=== PATIENT | female | born 1935 | race Caucasian/White ===

== ENCOUNTER 2016-05-30 21:07 | Inpatient (IN) | payer OTHER ==
[~2016-05-30] VITALS: Ht 162.6 cm; Wt 68.9 kg
[~2016-05-30 21:07] MED LIST: ADULT LOW DOSE81 M1 PO; ALBUTEROL2.5 MG/3 M IH; ASPIRIN E.C.81 M1 PO; ATROVENT 00.5 MG/2.5 IH; Ascorbic Acid,Ester- PO; BACTRIM,SEPT1 TABLE1 PO; BONIVA150 MG PO; CARDIZEM CD180 MG PO; CARTIA XT180 MG PO; DUONEB 2.5-0.5 M3 ML IH; EYE SUPPORT PO; FISH OIL CONC1 EACH PO; FUROSEMIDE40 MG PO; GLUCOPHAGE500 MG PO; GLUCOPHAGE850 MG PO; GLUCOTROL XL2.5 MG PO; Glucotrol PO; HYDROCODON-ACE1 EAC7 PO; IPRATROPIUM BROMIDE; JANUMET XR 50-1 EAC1 PO; Januvia PO; KEFLEX500 MG PO; KOMBIGLYZE XR1 EAC2 PO; LASIX10 MG PO; LASIX40 MG PO; LEVOFLOXACIN500 MG PO; LIDODERM 5% P1 PATCH TD; LISINOPRIL2.5 MG PO; Lasix PO; Levaquin PO; METFORMIN HCL850 MG PO; MICRO-K8 ME2 PO; POTASSIUM CHLOR8 ME3 PO; PRAVASTATIN SOD10 MG PO; PREDNISONE PO; PRESERVISION T1 EACH PO; PRINIVIL10 MG PO; SILVADENE20 GM TP; SINGULAIR10 MG PO; SPIRIVA1 INHALATI IH; SYMBICORT60 INHALAT IH; Symbicort 160-4.5 mc IH; TYLENOL EXTRA500 MG PO; VITAMIN D1000 INTUN PO; VITAMIN D31000 UNIT PO; VITAMIN D400 UNIT PO; XARELTO15 MG PO; XARELTO20 MG PO; ZESTRIL,PRINIVI10 M1 PO; ZOLOFT25 MG PO; ZOLOFT50 MG PO; [UNRECOGNIZED DRUG - OTHER] PO; [UNRECOGNIZED DRUG - OTHER] TP; [UNRECOGNIZED DRUG - OTHER] TP; predniSONE PO
[2016-05-30 21:23] LABS: HEMATOCRIT 35.4 % (36.0-46.0); MCH 27.2 PG (29.0-34.0); MCHC 31.4 G/DL (30.0-36.0); MCV 86.8 FL (83-99); MEAN PLAT.VOLUME 10.1 uM^3 (9.5-12.4); PLATELET COUNT 207 K/uL (156-360); RBC DIS.WIDTH-CV 15.4 % (11.8-14.6); RBC DIS.WIDTH-SD 49.5 % (39-53); RED BLOOD COUNT 4.08 M/uL (3.80-5.20)
[2016-05-30 21:45] LABS: PROTHROMBIN TIME 10.5 (9.2-11.2); PTT 30.8 (25-32)
[2016-05-30 21:53] LABS: CHLORIDE 99 mEq/L (99-109); POTASSIUM 3.9 mEq/L (3.7-5.4); SODIUM 135 mEq/L (136-147)
[2016-05-30 21:55] LABS: GLUCOSE 121 mg/dL (70-99)
[2016-05-30 21:57] LABS: ANION GAP 10 MEQ/L (2-14)
[2016-05-30 21:59] LABS: GFR ESTIMATE (CALCULATED) 56 mL/min/
[2016-05-30 22:00] LABS: UREA NITROGEN (BUN) 19 mg/dL (9-23)
[2016-05-30 22:03] LABS: TROP-I INTERPRETATION NEGATIVE; TROPONIN-I < 0.01 ng/mL (0.0-0.30)
[2016-05-30] MEDS ORDERED: K-TAB ER8 MEQ PO (23:26)
[2016-05-30] MEDS ORDERED: TAMIFLU75 MG PO (23:26)
[2016-05-31] VITALS (7 sets, daily range): BP systolic 125–152; BP diastolic 60–82
[2016-05-31 01:43] LABS: ADD MIUA? YES; BILIRUBIN NEGATIVE; BLOOD LARGE; COLOR STRAW ((YELLOW)); GLUCOSE (STRIP) NEGATIVE; KETONES 5; LEUKOCYTES NEGATIVE; NITRITE NEGATIVE; PROTEIN (STRIP) NEGATIVE; SPECIFIC GRAVITY 1.004 (1.000-1.030); UROBILINOGEN 0.2 MG/DL (0.2-1.0)
[2016-05-31 02:03] LABS: BACTERIA 1+ /HPF; EPITHELIAL CELLS RARE /HPF; MUCUS NONE SEEN /LPF; RED BLOOD CELLS 20-30 /HPF (0-5); UCUL ADDED? NO; WHITE BLOOD CELLS 0-5 /HPF (0-5)
[2016-06-01 03:34] VITALS: BP 126/72
[2016-06-01 06:14] LABS: ANION GAP 9 MEQ/L (2-14); CHLORIDE 98 MEQ/L (99-109); GFR ESTIMATE (CALCULATED) 56 mL/min/; GLUCOSE 157 mg/dL (70-99); POTASSIUM 3.7 MEQ/L (3.7-5.4); SAMPLE HEMOLYSIS CHECK 0; SAMPLE ICTERIC CHECK 0; SAMPLE LIPEMIA CHECK 0; SODIUM 136 MEQ/L (136-147); UREA NITROGEN (BUN) 24 mg/dL (9-23)
[2016-06-01 06:42] LABS: HEMATOCRIT 35.4 % (36.0-46.0); MCH 27.1 PG (29.0-34.0); MCHC 31.4 G/DL (30.0-36.0); MCV 86.6 FL (83-99); PLATELET COUNT 216 K/uL (156-360); RBC DIS.WIDTH-CV 15.6 % (11.8-14.6); RBC DIS.WIDTH-SD 49.1 % (39-53); RED BLOOD COUNT 4.09 M/uL (3.80-5.20)
[2016-06-01 06:43] LABS: WHITE BLOOD COUNT 10.4 K/uL (4.1-10.2)
[2016-06-01 07:48] VITALS: BP 146/64
[2016-06-01 11:13] VITALS: BP 122/59
[2016-06-01 15:06] VITALS: BP 127/59
[2016-06-01 20:00] VITALS: BP 131/57
[2016-06-02] VITALS: BP 135/65
[2016-06-02 04:00] VITALS: BP 129/83
[2016-06-02 07:53] VITALS: BP 138/67
[2016-06-02 11:47] VITALS: BP 120/60
[2016-06-02 16:35] VITALS: BP 140/68
[2016-06-02 19:59] VITALS: BP 135/81
[2016-06-03 01:09] VITALS: BP 137/64
[2016-06-03 04:00] VITALS: BP 145/63
[2016-06-03 08:18] VITALS: BP 153/92
[2016-06-03] MEDS ORDERED: PREDNISONE10 MG PO (11:53)
[2016-06-03 12:06] VITALS: BP 156/66
== END 2016-06-03 15:23 | disposition home health service (06) | DRG 190 ==
LOC: EME → EDBD 21:07 → EME 21:07 → 5SOUTH 23:41 → EDOF 23:41 → 5SOUTH 05-31 00:53
PROVIDERS: Emergency Medicine; Hospitalist; Internal Medicine
DX: J44.1 Chronic obstructive pulmonary disease with (acute) exacerbation (principal); J96.21 Acute and chronic respiratory failure with hypoxia; Z99.81 Dependence on supplemental oxygen; J11.1 Influenza due to unidentified influenza virus with other respiratory manifestations; I10 Essential (primary) hypertension; E78.5 Hyperlipidemia, unspecified; Z95.0 Presence of cardiac pacemaker; J20.9 Acute bronchitis, unspecified; J44.0 Chronic obstructive pulmonary disease with (acute) lower respiratory infection
CPT/HCPCS: 71020; 80048; 81003; 82948; 84484; 85027; 85610; 85730; 87070; 87205; 93005; 94640; 94640 76; 94799; 99281; 99285; J0696; J1644; J2920; J2930; J7030; J7050; J7512; J7644

== ENCOUNTER 2016-10-12 14:47 | Emergency (ER) | payer OTHER ==
[~2016-10-12] VITALS: Ht 144.8 cm; Wt 68.7 kg
[~2016-10-12 14:47] MED LIST changes: +K-TAB ER8 MEQ PO; +PREDNISONE10 MG PO; +TAMIFLU75 MG PO
[2016-10-12] MEDS ORDERED: ULTRACET1 TABLET PO (15:42)
[2016-10-12 17:44] VITALS: BP 126/51
== END 2016-10-12 19:41 | disposition home or self-care (01) ==
LOC: EME 14:47
DX: S80.12XA Contusion of left lower leg, initial encounter (principal); W07.XXXA Fall from chair, initial encounter; Y92.009 Unspecified place in unspecified non-institutional (private) residence as the place of occurrence of the external cause; J44.9 Chronic obstructive pulmonary disease, unspecified; I10 Essential (primary) hypertension; E11.9 Type 2 diabetes mellitus without complications; Z79.84 Long term (current) use of oral hypoglycemic drugs; Z95.0 Presence of cardiac pacemaker; Z87.891 Personal history of nicotine dependence
CPT/HCPCS: 73590; 99281; 99282

== ENCOUNTER 2017-05-14 16:06 | Emergency (ER) | payer OTHER ==
[~2017-05-14] VITALS: Ht 144.8 cm; Wt 69.9 kg
[~2017-05-14 16:06] MED LIST changes: +ULTRACET1 TABLET PO
[2017-05-14 17:12] LABS: BASOPHIL (%) 0.4 % (0-1); EOSINOPHIL (%) 0.7 % (0-5); EOSINOPHIL COUNT 0.1 K/uL (0-0.3); HEMATOCRIT 40.3 % (36.0-46.0); HEMOGLOBIN 13.1 G/DL (11.9-15.5); IMMATURE GRANULOCYTE (%) 0.3 % (0.0-0.7); LYMPHOCYTE (%) 18.1 % (15-42); LYMPHOCYTE COUNT 1.8 K/uL (1.0-2.8); MCH 29.2 PG (29.0-34.0); MCHC 32.5 G/DL (30.0-36.0); MONOCYTE (%) 8.7 % (3-12); MONOCYTE COUNT 0.9 K/uL (0-0.8); NEUTROPHIL (%) 71.8 % (45-76); NEUTROPHIL COUNT 7.3 K/uL (1.8-6.4); PLATELET COUNT 253 K/uL (156-360); RBC DIS.WIDTH-CV 15.5 % (11.8-14.6); RBC DIS.WIDTH-SD 51.1 % (39-53); RED BLOOD COUNT 4.48 M/uL (3.80-5.20); WHITE BLOOD COUNT 10.1 K/uL (4.1-10.2)
[2017-05-14 17:25] LABS: ALBUMIN 4.1 g/dL (3.2-4.8); CHLORIDE 100 mEq/L (99-109); POTASSIUM 4.3 mEq/L (3.7-5.4); SODIUM 138 mEq/L (136-147)
[2017-05-14 17:26] LABS: MAGNESIUM 2.1 mg/dL (1.3-2.7)
[2017-05-14 17:28] LABS: GLUCOSE 99 mg/dL (70-99); TOTAL PROTEIN 7.4 g/dL (6.4-8.3)
[2017-05-14 17:30] LABS: TOTAL BILIRUBIN 0.6 mg/dL (0.0-1.0)
[2017-05-14 17:31] LABS: ALKALINE PHOSPHATASE 68 IU/L (3-129)
[2017-05-14 17:32] LABS: CREATININE 1.1 mg/dL (0.6-1.3); GFR ESTIMATE (CALCULATED) 50 mL/min/; TROP-I INTERPRETATION NEGATIVE; TROPONIN-I < 0.01 ng/mL (0.0-0.30)
[2017-05-14 17:33] LABS: AST (GOT) 11 IU/L (2-34); UREA NITROGEN (BUN) 23 mg/dL (9-23)
[2017-05-14 17:34] LABS: ALT (GPT) 13 IU/L (3-49)
[2017-05-14 22:35] VITALS: BP 184/74
== END 2017-05-14 22:52 | disposition home or self-care (01) ==
LOC: EME 16:06
PROVIDERS: Emergency Medicine
DX: J44.1 Chronic obstructive pulmonary disease with (acute) exacerbation (principal); I11.0 Hypertensive heart disease with heart failure; I50.9 Heart failure, unspecified; Z99.81 Dependence on supplemental oxygen; E11.9 Type 2 diabetes mellitus without complications; Z79.84 Long term (current) use of oral hypoglycemic drugs; Z95.0 Presence of cardiac pacemaker; Z87.891 Personal history of nicotine dependence; Z88.5 Allergy status to narcotic agent; M81.0 Age-related osteoporosis without current pathological fracture
CPT/HCPCS: 71046; 80053; 83735; 83880; 84484; 85025; 93005; 94640; 99281; 99285

== ENCOUNTER 2017-10-23 12:27 | Inpatient (IN) | payer OTHER ==
[~2017-10-23] VITALS: Ht 144.8 cm; Wt 64.9 kg
[2017-10-23 13:37] LABS: HEMOGLOBIN 12.5 G/DL (11.9-15.5); MCHC 32.9 G/DL (30.0-36.0); MCV 91.3 FL (83-99); PLATELET COUNT 180 K/uL (156-360); RBC DIS.WIDTH-SD 50.1 % (39-53); RED BLOOD COUNT 4.16 M/uL (3.80-5.20); WHITE BLOOD COUNT 9.8 K/uL (4.1-10.2)
[2017-10-23 13:46] LABS: ALBUMIN 3.2 g/dL (3.2-4.8); CHLORIDE 103 mEq/L (99-109); POTASSIUM 4.7 mEq/L (3.7-5.4); SODIUM 136 mEq/L (136-147)
[2017-10-23 13:49] LABS: GLUCOSE 92 mg/dL (70-99); TOTAL PROTEIN 5.7 g/dL (6.4-8.3)
[2017-10-23 13:51] LABS: TOTAL BILIRUBIN 0.5 mg/dL (0.0-1.0)
[2017-10-23 13:52] LABS: ALKALINE PHOSPHATASE 66 IU/L (3-129); CREATININE 1.1 mg/dL (0.6-1.3); GFR ESTIMATE (CALCULATED) 50 mL/min/
[2017-10-23 13:53] LABS: UREA NITROGEN (BUN) 30 mg/dL (9-23)
[2017-10-23 13:54] LABS: AST (GOT) 8 IU/L (2-34)
[2017-10-23 13:55] LABS: ALT (GPT) 9 IU/L (3-49)
[2017-10-23 14:31] LABS: C DIFF TOXIN NEGATIVE (NEGATIVE)
[2017-10-23] MEDS ORDERED: CARDIZEM CD,CA180 MG PO (15:56)
[2017-10-23] MEDS ORDERED: SERTRALINE HCL25 MG PO (15:56)
[2017-10-23] MEDS ORDERED: FUROSEMIDE40 MG PO (15:56)
[2017-10-23] MEDS ORDERED: POTASSIUM CHLOR8 ME3 PO (15:56)
[2017-10-23] MEDS ORDERED: METFORMIN HCL500 MG PO (15:57)
[2017-10-23] MEDS ORDERED: PRAVACHOL10 MG PO (15:57)
[2017-10-23] MEDS ORDERED: IMODIUM A-D2 M2 PO (16:05)
[2017-10-23 19:37] VITALS: BP 124/56
[2017-10-23 19:55] LABS: HEMOGLOBIN 12.4 G/DL (11.9-15.5); MCV 91.8 FL (83-99)
[2017-10-24] VITALS (8 sets, daily range): BP systolic 99–114; BP diastolic 45–57
[2017-10-24 08:43] LABS: HEMATOCRIT 36.1 % (36.0-46.0); HEMOGLOBIN 11.5 G/DL (11.9-15.5); MCV 92.8 FL (83-99)
[2017-10-24 19:48] LABS: HEMATOCRIT 33.4 % (36.0-46.0); HEMOGLOBIN 10.9 G/DL (11.9-15.5)
[2017-10-25] VITALS (7 sets, daily range): BP systolic 100–119; BP diastolic 49–71
[2017-10-25 07:18] LABS: HEMATOCRIT 32.9 % (36.0-46.0); HEMOGLOBIN 10.7 G/DL (11.9-15.5); MCV 91.9 FL (83-99)
[2017-10-25 20:23] LABS: HEMATOCRIT 35.9 % (36.0-46.0); HEMOGLOBIN 11.5 G/DL (11.9-15.5); MCV 92.3 FL (83-99)
[2017-10-26 04:29] VITALS: BP 118/74
[2017-10-26 07:30] VITALS: BP 116/56
[2017-10-26 08:51] LABS: BASOPHIL (%) 0.3 % (0-1); EOSINOPHIL (%) 0.3 % (0-5); HEMATOCRIT 35.2 % (36.0-46.0); HEMOGLOBIN 11.5 G/DL (11.9-15.5); IMMATURE GRANULOCYTE (%) 3.2 % (0.0-0.7); LYMPHOCYTE (%) 5.8 % (15-42); LYMPHOCYTE COUNT 0.6 K/uL (1.0-2.8); MCH 30.4 PG (29.0-34.0); MCHC 32.7 G/DL (30.0-36.0); MCV 93.1 FL (83-99); MONOCYTE (%) 9.8 % (3-12); NEUTROPHIL (%) 80.6 % (45-76); NEUTROPHIL COUNT 8.2 K/uL (1.8-6.4); PLATELET COUNT 186 K/uL (156-360); RBC DIS.WIDTH-CV 15.9 % (11.8-14.6); RBC DIS.WIDTH-SD 54.9 % (39-53); RED BLOOD COUNT 3.78 M/uL (3.80-5.20); WHITE BLOOD COUNT 10.1 K/uL (4.1-10.2)
[2017-10-26 09:14] LABS: CHLORIDE 111 MEQ/L (99-109); CREATININE 0.8 MG/DL (0.6-1.3); GFR ESTIMATE (CALCULATED) > 59 mL/min/; POTASSIUM 4.2 MEQ/L (3.7-5.4)
[2017-10-26 09:19] LABS: GLUCOSE 120 mg/dL (70-99); SODIUM 143 MEQ/L (136-147); UREA NITROGEN (BUN) 10 mg/dL (9-23)
[2017-10-26 19:46] LABS: HEMATOCRIT 33.3 % (36.0-46.0); HEMOGLOBIN 10.8 G/DL (11.9-15.5)
[2017-10-27 00:59] VITALS: BP 128/62
[2017-10-27 06:55] VITALS: BP 120/63
[2017-10-27] MEDS ORDERED: LACTOBACILLUS1 EACH PO (07:59)
[2017-10-27] MEDS ORDERED: FLAGYL500 MG PO (07:59)
[2017-10-27] MEDS ORDERED: CIPRO500 MG PO (07:59)
[2017-10-27 08:20] LABS: HEMATOCRIT 33.4 % (36.0-46.0); HEMOGLOBIN 11.2 G/DL (11.9-15.5); MCV 91.5 FL (83-99)
== END 2017-10-27 11:07 | DRG 392 ==
LOC: EME 12:27 → 5EAST 16:21 → EDOF 16:21 → 5EAST 19:15
PROVIDERS: Emergency Medicine; Hospitalist; Student in an Organized Health Care Education/Training Program
DX: K57.32 Diverticulitis of large intestine without perforation or abscess without bleeding (principal); J96.10 Chronic respiratory failure, unspecified whether with hypoxia or hypercapnia; K92.1 Melena; J44.9 Chronic obstructive pulmonary disease, unspecified; Z99.81 Dependence on supplemental oxygen; Z95.0 Presence of cardiac pacemaker; I10 Essential (primary) hypertension; C55 Malignant neoplasm of uterus, part unspecified; E11.9 Type 2 diabetes mellitus without complications; I48.91 Unspecified atrial fibrillation; Z79.4 Long term (current) use of insulin; Z87.891 Personal history of nicotine dependence; Z92.3 Personal history of irradiation
CPT/HCPCS: 74177; 80048; 80053; 81003; 85014; 85018; 85025; 85027; 86850; 86900; 86901; 87493; 94640; 94799; J1956; J7030; S0030

== ENCOUNTER 2017-10-23 17:21 | Emergency (ER) | payer OTHER ==
[~2017-10-23 17:21] MED LIST changes: +CARDIZEM CD,CA180 MG PO; +IMODIUM A-D2 M2 PO; +METFORMIN HCL500 MG PO; +PRAVACHOL10 MG PO; +SERTRALINE HCL25 MG PO
== END 2017-10-23 18:45 | disposition left against medical advice (07) ==
LOC: EME 17:21
DX: R10.9 Unspecified abdominal pain (principal); Z53.21 Procedure and treatment not carried out due to patient leaving prior to being seen by health care provider
CPT/HCPCS: 99281; 99284